=== PATIENT | male | born 1985 | race Two or more races ===

== ENCOUNTER 2022-04-05 21:34 | Emergency (ER) | payer OTHER | END 2022-04-05 23:07 | disposition left against medical advice (07) | LOC: ER 21:41 | DX: Z00.00 Encounter for general adult medical examination without abnormal findings (principal); Z53.21 Procedure and treatment not carried out due to patient leaving prior to being seen by health care provider ==

== ENCOUNTER 2022-04-06 17:19 | Inpatient (IN) | payer OTHER ==
[~2022-04-06] VITALS: Ht 177.8 cm; Wt 139.7 kg
[2022-04-06 18:16] LABS: Basophils # (auto) 0.1 10 ^3/uL (0-0.2); Basophils % (auto) 0.8 % (0.0-2.0); Eosinophils # (auto) 0.2 10 ^3/uL (0-0.8); Hematocrit 49.1 % (41.0-53.0); Hemoglobin 16.5 g/dL (13.5-17.5); Lymphocytes # (auto) 4.5 10 ^3/uL (0.4-5.4); Lymphocytes % (auto) 37.1 % (10.0-50.0); Mean Corpuscular Hemoglobin 28.5 pg (28.0-32.0); Mean Corpuscular Hgb Conc. 33.6 g/dL (32.0-36.0); Mean Corpuscular Volume 84.7 fL (80.0-100.0); Monocytes # (auto) 0.5 10 ^3/uL (0-1.3); Monocytes % (auto) 4.4 % (0.0-12.0); Neutrophils # (auto) 6.8 10 ^3/uL (1.6-8.6); Neutrophils % (auto) 55.7 % (37.0-80.0); Nucleated Red Blood Cells % 0.2 %; Red Cell Distribution Width 12.8 % (11.8-14.3); White Blood Cell 12.2 10^3/uL (4.4-10.8)
[2022-04-06 18:33] LABS: Albumin 4.4 g/dL (3.4-5.0); Calcium 9.5 mg/dL (8.5-10.1); Potassium 4.3 mmol/L (3.5-5.1)
[2022-04-06 18:36] LABS: BUN/Creatinine Ratio 14.4; Bilirubin, Total 0.3 mg/dL (0.2-1.0); Total Protein 8.8 g/dL (6.4-8.2)
[2022-04-06] MEDS ORDERED: SODIUM CHLORIDE 0.9% 1,000 ML IV ONE ×2 (18:45→19:30)
[2022-04-06] MEDS ORDERED: DOCUSATE SOD 100 MG CAP PO PRN (21:30)
[2022-04-06] MEDS ORDERED: ACETAMINOPHEN 325 MG TAB PO PRN (21:30)
[2022-04-06] MEDS ORDERED: ALUM & MAG HYDROX-SIMETH LIQ(MAALOX) 30 ML PO PRN (21:30)
[2022-04-06] MEDS ORDERED: HYDROcodone-ACET 5/325MG TAB PO PRN (21:30)
[2022-04-06] MEDS ORDERED: LORazepam 0.5 MG TAB PO PRN (21:30)
[2022-04-06] MEDS ORDERED: ONDANSETRON HCL 4 MG/2 ML VIAL IV PRN (21:30)
[2022-04-06] MEDS ORDERED: DEXTROSE (50%) 50ML SYRG IV PRN (21:45)
[2022-04-07] MEDS: InsuLIN REG 1unit/0.01ml Soln (100units/ml) SC SCH ×6 (01:41→20:35)
[2022-04-07] MEDS: ACCU-CHEK COMFORT CURVE STRIP VI SCH ×6 (01:45→20:35)
[2022-04-07] MEDS: SODIUM CHLORIDE 0.9% 1,000 ML IV SCH ×5 (01:48→17:30)
[2022-04-07 05:00] VITALS: BP 130/78
[2022-04-07 05:15] VITALS: BP 130/78
[2022-04-07 05:27] LABS: Basophils # (auto) 0.1 10 ^3/uL (0-0.2); Basophils % (auto) 0.6 % (0.0-2.0); Eosinophils # (auto) 0.3 10 ^3/uL (0-0.8); Eosinophils % (auto) 2.7 % (0.0-7.0); Hematocrit 43.9 % (41.0-53.0); Hemoglobin 14.9 g/dL (13.5-17.5); Lymphocytes # (auto) 3.8 10 ^3/uL (0.4-5.4); Lymphocytes % (auto) 40.2 % (10.0-50.0); Mean Corpuscular Hemoglobin 28.5 pg (28.0-32.0); Mean Corpuscular Hgb Conc. 33.9 g/dL (32.0-36.0); Monocytes # (auto) 0.6 10 ^3/uL (0-1.3); Neutrophils # (auto) 4.8 10 ^3/uL (1.6-8.6); Neutrophils % (auto) 50.5 % (37.0-80.0); Red Blood Cells 5.23 10^6/uL (4.5-5.90); Red Cell Distribution Width 13.1 % (11.8-14.3); White Blood Cell 9.5 10^3/uL (4.4-10.8)
[2022-04-07 05:41] LABS: BUN/Creatinine Ratio 16.7; Calcium 8.8 mg/dL (8.5-10.1); Potassium 3.8 mmol/L (3.5-5.1)
[2022-04-07 08:15] VITALS: BP 165/81
[2022-04-07 08:26] LABS: Magnesium 1.9 mg/dL (1.6-2.6)
[2022-04-07 08:29] LABS: Phosphorus 2.6 mg/dL (2.5-4.90)
[2022-04-07] MEDS ORDERED: cefTRIAXone 1GM/50ML D5W 50 ML IV SCH (10:00)
[2022-04-07 12:15] VITALS: BP 137/88
[2022-04-07 16:15] VITALS: BP 126/80
[2022-04-07 18:57] LABS: Urine Blood TRACE /uL (Negative)
[2022-04-07] MEDS ORDERED: ERGOCALCIFEROL 50,000 UNIT(1.25MG) CAP PO SCH (21:30)
[2022-04-07 22:00] VITALS: BP 132/88
[2022-04-07] MEDS: CEPHALEXIN 250 MG CAP PO SCH (22:18)
[2022-04-08] MEDS: InsuLIN REG 1unit/0.01ml Soln (100units/ml) SC SCH ×4 (01:31→12:32)
[2022-04-08] MEDS: INSULIN 70/30 1unit/0.01ml Susp (100units/ml) SC SCH ×2 (01:31→09:45)
[2022-04-08] MEDS: ACCU-CHEK COMFORT CURVE STRIP VI SCH ×4 (01:32→12:00)
[2022-04-08 05:00] VITALS: BP 124/78
[2022-04-08 06:00] LABS: BUN/Creatinine Ratio 12.2; Calcium 8.8 mg/dL (8.5-10.1); Magnesium 1.6 mg/dL (1.6-2.6); Potassium 3.5 mmol/L (3.5-5.1)
[2022-04-08] MEDS: CEPHALEXIN 250 MG CAP PO SCH ×2 (06:37→14:00)
[2022-04-08] MEDS ORDERED: POTASSIUM CHL 20 Meq TABLET PO ONE (08:15)
[2022-04-08] MEDS ORDERED: MAGNESIUM OXIDE 400 MG TAB PO ONE (08:15)
[2022-04-08 09:00] VITALS: BP 104/68
[2022-04-08] MEDS ORDERED: INS7030I SC ×2 (12:07→14:52)
[2022-04-08] MEDS ORDERED: LANC-347 XX (12:07)
[2022-04-08] MEDS ORDERED: ERGO1CAP23 PO (12:07)
[2022-04-08] MEDS ORDERED: BLOO1KIT60 XX (12:07)
[2022-04-08] MEDS ORDERED: CEPH-510 PO (12:07)
[2022-04-08 13:00] VITALS: BP 123/65
== END 2022-04-08 15:16 | disposition home or self-care (01) | DRG 727 ==
LOC: ER 17:19 → OVERFLOW 21:35 → WEST WING 04-07 04:10
PROVIDERS: ADMIT Hospitalist; ATTEND Internal Medicine
DX: N48.1 Balanitis (principal); E11.10 Type 2 diabetes mellitus with ketoacidosis without coma; Z68.41 Body mass index [BMI] 40.0-44.9, adult; N47.1 Phimosis; E86.0 Dehydration; E66.9 Obesity, unspecified; Z83.3 Family history of diabetes mellitus; Z20.822 Contact with and (suspected) exposure to COVID-19; Z71.3 Dietary counseling and surveillance
CPT/HCPCS: 36415; 36600; 71045; 80048; 80053; 80061; 81003; 82010; 82043; 82306; 82607; 82805; 82962; 83036; 83735; 84100; 84443; 85025; 87426; 93005; 96360; G0378; J0696; J1815